=== PATIENT | female | born 1980 | race Caucasian/White ===

== ENCOUNTER 2020-09-29 07:57 | Day surgery (SDC) | payer MEDICAID ==
[2020-09-29] MEDS ORDERED: Propofol 200 MG/20 ML SDV ONE ×2 (08:32→10:59)
[2020-09-29] MEDS ORDERED: fentaNYL 100 MCG/2 ML SDV ONE (08:32)
[2020-09-29] MEDS ORDERED: Midazolam 1 MG/ML 2 ML SDV ONE (08:32)
[2020-09-29] MEDS ORDERED: Dextrose 5%-Lactated Ringers 1,000 ML IV SCH (09:00)
[2020-09-29 12:11] VITALS: BP 136/83; PULSE 88
--- NOTE | 2020-10-02 16:38 | OR ---
DATE OF PROCEDURE: 09/29/2020 SURGEON: Jak Noonan MD PREOPERATIVE DIAGNOSES: 1. Bright red rectal bleeding. 2. History of multiple colonic polyps. POSTOPERATIVE DIAGNOSES: 1. History of bright red rectal bleeding associated with mildly excoriated mixed hemorrhoids. 2. Small sigmoid polyps x2. 3. Very small rectal polyp. OPERATIVE PROCEDURE: Flexible colonoscopy with: 1. Removal of sigmoid polyps x2 by snare technique (13703). 2. Removal of tiny distal rectal polyp by means of cold biopsy forceps (31069). ANESTHESIA: IV sedation. INDICATIONS FOR PROCEDURE: This is a 40-year-old presenting with some bright red rectal bleeding. This has been ongoing for roughly 2 weeks, but has been present intermittently for some time. Of note, the patient does have a history of several adenomatous polyps being removed at age 28, i.e., 12 years ago, and also has a strong family history of colon carcinoma. The plan is to proceed with a flexible colonoscopy with biopsies and/or polypectomy, and if appropriate hemorrhoids are identified, i.e., engorged internal hemorrhoids, for banding, though that might be considered concurrently. Otherwise, potential risks including bleeding and perforation were discussed, and the patient wishes to proceed. DETAILS OF PROCEDURE: The patient was taken to the operating room and placed in a left lateral decubitus position. IV sedation was administered after which the initial digital rectal exam was performed and was unremarkable. Colonoscope was then passed into the rectum. Both on passage of scope directly and on retroflexion, the patient was noted to have diffusely somewhat excoriated mixed hemorrhoids. There were no hemorrhoid columns that would be at this point appropriate for hemorrhoid banding. No blood or bleeding was seen at this time. The scope was eventually passed to the cecum. The prep was quite good with only a small amount of liquid stool present. There were no areas of diverticular disease. No areas of colitis. There were 2 small polyps in the sigmoid colon. These were more or less in the mid sigmoid colon at around 20 cm from the dentate line. Both of these were removed by means of cautery snare technique and sent for histologic evaluation, and there was a tiny polyp in the distal rectum, which was removed by 2 bites of the cold biopsy forceps and also sent for histologic evaluation. Minimal bleeding from the biopsy site was seen, and the procedure was then concluded. The patient was taken to the recovery room in satisfactory condition. Given the family history of colon carcinoma and the recurrent polyps, I think this patient should probably be entered in somewhat more of an intense screening colonoscopy regimen. Recommendation would be to repeat the next colonoscopy in 2 years, and then, from that point, space things out appropriately based on the findings at that time. Jak Noonan MD /[id number]
== END 2020-09-29 12:13 | disposition home or self-care (01) ==
LOC: JP.SDS 07:57
PROVIDERS: ATTEND Surgery
DX: D12.5 Benign neoplasm of sigmoid colon (principal); K64.8 Other hemorrhoids; Z80.0 Family history of malignant neoplasm of digestive organs; K62.1 Rectal polyp
CPT/HCPCS: 45380; 45385; 81025; 88305; J2250; J2704; J3010; J7121

== ENCOUNTER 2024-03-21 19:06 | Emergency (ER) | payer MEDICAID ==
[2024-03-21 20:07] VITALS: BP 146/75; PULSE 91
[2024-03-21] MEDS: Proparacaine 0.5% Ophth Soln 15 ML Bottle EYERT ONE (21:16)
== END 2024-03-21 21:58 | disposition home or self-care (01) ==
LOC: JP.ED 19:06
DX: S05.01XA Injury of conjunctiva and corneal abrasion without foreign body, right eye, initial encounter (principal); F17.200 Nicotine dependence, unspecified, uncomplicated; Z79.899 Other long term (current) drug therapy; X58.XXXA Exposure to other specified factors, initial encounter
CPT/HCPCS: 99282; A9270

== ENCOUNTER 2025-01-05 14:30 | Emergency (ER) | payer MEDICAID ==
[2025-01-05 14:53] VITALS: BP 143/96; PULSE 87
[2025-01-05 15:33] LABS: BASOPHILS ABSOLUTE AUTO 0.10 K/uL (0.00-0.10); BASOPHILS PERCENT AUTO 1.3 % (0.1-1.3); EOSINOPHILS ABSOLUTE AUTO 0.16 K/uL (0.00-0.40); EOSINOPHILS PERCENT AUTO 2.1 % (0.0-5.4); IMMATURE GRAN ABSOLUTE AUTO 0.03 K/uL (0.00-0.23); IMMATURE GRAN PERCENT AUTO 0.4 % (0.0-0.7); LYMPHOCYTES ABSOLUTE AUTO 1.49 K/uL (0.8-3.3); LYMPHOCYTES PERCENT AUTO 19.4 % (11.4-47.7); MONOCYTES ABSOLUTE AUTO 0.50 K/uL (0.20-0.90); MONOCYTES PERCENT AUTO 6.5 % (3.3-12.6); NEUTROPHILS ABSOLUTE AUTO 5.40 K/uL (1.0-7.6); NEUTROPHILS PERCENT AUTO 70.3 % (40.0-78.1); PLATELET COUNT,PLT 270 K/uL (130-375); RED BLOOD CELL COUNT 4.44 M/uL (3.77-5.24); WHITE BLOOD CELL COUNT,WBC 7.7 K/uL (3.2-11.0)
[2025-01-05 15:41] LABS: APPEARANCE,URINE CLOUDY (CLEAR); GLUCOSE,URINE NEGATIVE (NEGATIVE); OCCULT BLOOD,URINE SMALL (NEGATIVE)
[2025-01-05 15:48] LABS: EPITHELIAL CELLS,URINE FEW
[2025-01-05 15:53] LABS: A/G RATIO 0.9 (1.2-2.2); ALANINE AMINOTRANSFERASE,ALT 72 U/L (12-78); ASPARTATE AMNIOTRANSFERASE,AST 44 U/L (15-37); BILIRUBIN TOTAL 0.5 mg/dL (0.2-1.0); BLOOD UREA NITROGEN,BUN 5 mg/dL (7-18); CARBON DIOXIDE,CO2 28 mmol/L (21-32); CHLORIDE,CL 102 mmol/L (100-108); CREATININE 0.6 mg/dL (0.6-1.0); EST CRCL DRUG DOSING (CG) 125.04 mL/min; ESTIMATED GFR 113 mL/min (>60); GLUCOSE RANDOM 90 mg/dL (74-106); POTASSIUM,K 4.3 mmol/L (3.6-5.2); PROTEIN TOTAL,TP 7.5 g/dL (6.4-8.2); SODIUM,NA 137 mmol/L (140-148)
== END 2025-01-05 16:31 | disposition home or self-care (01) ==
LOC: JP.ED 14:30
DX: R11.11 Vomiting without nausea (principal); Z79.899 Other long term (current) drug therapy
CPT/HCPCS: 36415; 80053; 81001; 85025; 86140; 99283; 99284